=== PATIENT | female | born 1940 | race Caucasian/White ===

== ENCOUNTER 2022-02-21 12:01 | Emergency (ER) | payer MEDICARE, BC, SELFPAY ==
[2022-02-21 12:16] VITALS: BP 133/68; PULSE 76; RESP 14; TEMP 36.3; O2SAT 99
--- NOTE | 2022-02-21 12:25 | DI.US.S_ITS ---
PROCEDURE: US PERIPH VENOUS LOW EXTREM RT INDICATIONS: EDEMA 5 WEEKS POST OP TECHNIQUE: Real-time imaging, as well as color and pulse Doppler interrogation, were performed of the lower extremity deep veins from the inguinal ligament to the popliteal fossa. COMPARISON: None. FINDINGS: The common femoral, femoral and popliteal veins are normally compressible, and free of intraluminal thrombus. Color and pulse Doppler demonstrate normal phasic intraluminal flow. There is normal augmentation response to distal compression maneuver. Greater saphenous vein in the area of concern is patent. No fluid collection seen. IMPRESSION: No right lower extremity DVT. Dictated by: Efrain Perera M.D. on 02/21/2022 at 12:55 Approved by: Efrain Perera M.D. on 02/21/2022 at 12:56
[2022-02-21 14:23] VITALS: BP 154/70; PULSE 58; RESP 18; O2SAT 99
--- NOTE | 2022-02-21 14:30 | ED_ITS ---
HPI - Extremity Problem General Chief complaint: Extremity Problem,Nontraumatic Stated complaint: rt. leg swelling post surgery sent by [facility] Time Seen by Provider: 02/21/22 14:05 Source: patient Mode of arrival: Ambulatory History of Present Illness HPI Narrative: Patient is a 81-year-old female who presents to the ED complaining of right leg pain. Patient had knee surgery for a fracture patella approximately 5 weeks ago. She has been undergoing physical therapy and she is normally quite active person. She noticed a few days ago that she was going up some stairs and had some abnormal amounts of shortness of breath she contacted her director epidemiology in her [facility] specialist of which they became concerned for a pulmonary embolism she had a CT scan that was ruled out a PE. But she was also having some right leg swelling she presents to the ED for an evaluation to rule out DVT. She states that she has noticed any significant swelling to the right leg and she nor arm normally has no swelling in the ankle. She denies any redness or lower extremity global swelling. She is noticed some isolated swelling along her knee and on the back of her knee. She denies any redness no previous coagulopathies reported. No recent trauma or fall. Related Data Allergies Allergy/AdvReac Type Severity Reaction Status Date / Time No Known Drug Allergies Allergy Verified 02/21/22 12:16 Review of Systems Review of Systems ROS Unobtainable: All systems reviewed & are unremarkable except as noted in HPI and below Constitutional Constitutional: Denies chills, Denies fatigue, Denies fever(s), Denies frequent falls, Denies lethargy and Denies weakness Eyes Eyes: Denies change in vision, Denies eye discharge, Denies irritation and Denies loss of vision ENT Ears, Nose, Mouth, and Throat: Denies change in voice, Denies dizziness, Denies neck pain, Denies sore throat and Denies throat swelling Cardiovascular Cardiovascular: Denies chest pain, Denies irregular heart rhythm, Denies lightheadedness, Denies palpitations, Denies dyspnea, Denies dyspnea on exertion and Denies orthopnea Respiratory Respiratory: Denies cough, Denies dyspnea, Denies dyspnea on exertion and Denies wheezing Gastrointestinal Gastrointestinal: Denies abdominal pain, Denies change in bowel habits, Denies diarrhea, Denies nausea and Denies vomiting Genitourinary Genitourinary: Denies hematuria, Denies flank pain, Denies urinary incontinence and Denies urinary urgency Musculoskeletal Musculoskeletal: Denies back pain, Reports joint swelling, Denies muscle weakness, Denies neck pain, Denies numbness and Denies tingling Integumentary/Breasts Skin/Breast: Denies pruritus, Denies erythema, Denies rash and Denies wounds Neurologic Neurologic: Denies behavioral changes, Denies confusion, Denies dizziness, Denies frequent falls, Denies loss of vision, Denies numbness, Denies tingling and Denies weakness Psychiatric Psychiatric: Denies anxiety, Denies behavioral changes, Denies confusion, Denies depression, Denies homicidal ideation and Denies suicidal ideation Endocrine Endocrine: Denies fatigue, Denies flushing and Denies palpitations Hematologic/Lymphatic Hematologic/Lymphatic: Denies easy bruising Allergic/Immunologic Allergic/Immunologic: Denies urticaria, Denies throat swelling and Denies wheezing Patient History Social History Smoking Status: Unknown if ever smoked Smoking Status: Unknown if ever smoked alcohol intake frequency: holidays/special occasions only Substance Use Type: does not use Exam Initial Vital Signs Initial Vital Signs: Vital Signs Temperature 97.3 F L 02/21/22 12:16 Pulse Rate 76 02/21/22 12:16 Respiratory Rate 14 02/21/22 12:16 Blood Pressure 133/68 02/21/22 12:16 Pulse Oximetry 99 02/21/22 12:16 Oxygen Delivery Method 02/21/22 12:16 HENMT Head: normal to inspection and normocephalic Ears: hearing grossly normal bilaterally and external ears normal Teeth and gingiva: dentition normal and gingiva normal Resp Effort & Inspection: normal respiratory effort and able to speak in complete sentences GI Inspection: normal to inspection Extrem Right lower extremity: normal to inspection, full ROM, normal capillary refill and lower leg Details: normal to inspection Course Orders Ordered: ED Orders 02/21/22 12:25 US periph venous low extrem rt Stat Vital Signs Vital signs: Vital Signs - 8 hr 02/21/22 12:16 02/21/22 14:23 Temperature 97.3 F L Pulse Rate 76 58 L Respiratory Rate 14 18 Blood Pressure 133/68 154/70 H Pulse Oximetry 99 99 Oxygen Delivery Method Room Air Room Air MDM - Extremity (Nontraumatic) MDM Narrative Medical decision making narrative: Patient was seen today for rule out DVT. Based on her exam the likelihood of DVT is low and the ultrasound results did not show any evidence of DVT at this time. Patient is okay to be discharged home and I would recommend follow-up with her orthopedic for further treatment and evaluation. If the patient has any other issues she can return to the ED. Discharge Plan Departure Patient Disposition: Home Clinical Impression: Lower extremity edema Instructions: DI for Leg Pain Activity Restrictions/Additional Instructions: You were seen today for rule out DVT. There was no evidence of any DVT and your ultrasound was negative. If you have any further concerns she can return to the ED otherwise I would follow-up with your hris specialist. Thank you for the opportunity to care for you today.
== END 2022-02-21 15:16 | disposition home or self-care (01) ==
PROVIDERS: Emergency Provider Physician Assistant
DX: R60.0 Localized edema (principal)
CPT/HCPCS: 93971; 99281; 99283